=== PATIENT | female | born 1985 | race Caucasian/White ===

== ENCOUNTER 2023-02-23 13:37 | Emergency (ER) | payer MEDICAID ==
[2023-02-23 14:02] VITALS: PULSE 70; O2SAT 100
[2023-02-23] MEDS ORDERED: Sodium Chloride 0.9% 1000 ML 1,000 ML IV STA ×2 (14:05→15:26)
[2023-02-23] MEDS ORDERED: Zofran 4 MG/2 ML VIAL IV ONE (14:05)
[2023-02-23] MEDS ORDERED: Sodium Chloride 0.9% 1000 ML 1,000 ML ONE ×2 (14:06→15:28)
[2023-02-23] MEDS ORDERED: Zofran 4 MG/2 ML VIAL ONE (14:06)
--- NOTE | 2023-02-23 14:07 | ERPHSYRPT ---
- History of Present Illness Historian: patient Patient Subjective Stated Complaint: Pt began vomiting in the middle of the night and continues today, pt states that she is 5 months but has had no prenantal care and doesn't know her delivery date Triage Nursing Assessment: Pt brought to the ER by her mother, vera wnl, denies pain, vomiting, denies diarrhea, asking for a drink, pulses normal, skin pale/cool/dry, shivering, afebrile Physician History: 37 yo WF [id number] Wf who is 5 months presents w nausea/vomiting since last night. Pt has no pre-julee care and has moved recently moved here from [facility]. She denies abdominal-pelvic pain/vaginal bleeding/vaginal discharge/fever/dysuria/hematuria/diarrhea. Immediate family members w GI virus. Timing/Duration: yesterday Activities at Onset: rest Quality: other (No pain) Abdominal Pain Onset Location: other (No pain) Pain Radiation: no radiation Severity of Pain-Max: none Severity of Pain-Current: none Modifying Factors: Improves With: nothing Associated Symptoms: denies symptoms, nausea, vomiting Previous symptoms: no prior history Allergies/Adverse Reactions: No Known Drug Allergies Allergy (Verified 02/23/23 14:02) Hx Tetanus, Diphtheria Vaccination/Date Given: No Hx Influenza Vaccination/Date Given: No Hx Pneumococcal Vaccination/Date Given: No Travel Risk - International Travel Have you traveled outside of the country in past 3 weeks: No - Coronavirus Screening Are you exhibiting any of the following symptoms?: No Close contact with a COVID-19 positive Pt in past 14-21 Days: No - Vaccine Status Have you recieved a Covid-19 vaccination: No - Review of Systems Constitutional: No Symptoms Eyes: No Symptoms Ears, Nose, & Throat: No Symptoms Respiratory: No Symptoms Cardiac: No Symptoms Abdominal/Gastrointestinal: No Symptoms, Nausea, Vomiting Genitourinary Symptoms: No Symptoms Musculoskeletal: No Symptoms Skin: No Symptoms Neurological: No Symptoms Psychological: No Symptoms Endocrine: No Symptoms Hematologic/Lymphatic: No Symptoms Immunological/Allergic: No Symptoms - Past Medical History Pertinent Past Medical History: No Musculoskeletal History: Arthritis - Past Surgical History Past Surgical History: Yes Gastrointestinal: Cholecystectomy Other Surgical History: bakers cyst back of rt knee - Social History Smoking Status: Current every day smoker Exposure to second hand smoke: Yes Drug Use: marijuana Patient Lives Alone: No - Female History Hx Now: Yes Gestational Age: unknown - Nursing Vital Signs Nursing Vital Signs: Initial Vital Signs Temperature 97.4 F 02/23/23 13:44 Pulse Rate 70 02/23/23 13:44 Blood Pressure 125/69 02/23/23 13:44 O2 Sat by Pulse Oximetry 100 02/23/23 13:44 Pain Scale Pain Intensity 0 WNL - Physical Exam General Appearance: no apparent distress Eye Exam: PERRL/EOMI, eyes nml inspection Ears, Nose, Throat Exam: normal ENT inspection, TMs normal, dry mucous membranes Neck Exam: normal inspection, non-tender, supple, full range of motion, No m eningismus, No mass, No Brudzinski, No Kernig's Respiratory Exam: normal breath sounds, lungs clear, airway intact Cardiovascular Exam: regular rate/rhythm, normal heart sounds, normal peripheral pulses, capillary refill <2 sec, No murmur Gastrointestinal/Abdomen Exam: soft, normal bowel sounds, No tenderness Back Exam: normal inspection, normal range of motion, No CVA tenderness Extremity Exam: normal inspection, normal range of motion Neurologic Exam: alert, oriented x 3, cooperative, curator of collections II-XII nml as tested, normal mood/affect, nml cerebellar function, nml station & gait, sensation nml, No motor deficits, No sensory deficit Skin Exam: normal color, warm, dry Lymphatic Exam: No adenopathy SpO2 Interpretation: normal SpO2: 100 O2 Delivery: Room Air - Course Nursing assessment & vital signs reviewed: Yes - Radiology Ultrasound Exam OB Ultrasound: tele radiology report (IUP/FHR 151/Posterior placenta wo abruption or previa) Ordered Tests: Active Orders 24 hr Category Date Time Status IV Insertion STAT Care 02/23/23 14:05 Completed OB LIMITED [US] Stat Exams 02/23/23 15:27 Completed AMYLASE Stat Lab 02/23/23 14:27 Completed CBC W DIFF Stat Lab 02/23/23 14:27 Completed CMP Stat Lab 02/23/23 14:27 Completed LIPASE Stat Lab 02/23/23 14:27 Completed Medication Summary Discontinued Medications Generic Name Dose Route Start Last Admin Trade Name Freq PRN Reason Stop Dose Admin Sodium Chloride 1,000 mls @ 999 mls/hr 02/23/23 14:05 02/23/23 15:08 Sodium Chloride 0.9% 1000 Ml IV 02/23/23 15:05 Infused .Q1H1M STA Infusion Sodium Chloride Confirm 02/23/23 14:06 Sodium Chloride 0.9% 1000 Ml Administered 02/23/23 14:07 Dose 1,000 mls @ ud .ROUTE .STK-MED ONE Sodium Chloride 1,000 mls @ 999 mls/hr 02/23/23 15:26 02/23/23 16:29 Sodium Chloride 0.9% 1000 Ml IV 02/23/23 16:26 Infused .Q1H1M STA Infusion Sodium Chloride Confirm 02/23/23 15:28 Sodium Chloride 0.9% 1000 Ml Administered 02/23/23 15:29 Dose 1,000 mls @ ud .ROUTE .STK-MED ONE Ondansetron HCl 4 mg 02/23/23 14:05 02/23/23 14:07 Ondansetron Hcl 4 Mg/2 Ml Vial IV 02/23/23 14:06 4 mg STAT ONE Administration Ondansetron HCl Confirm 02/23/23 14:06 Ondansetron Hcl 4 Mg/2 Ml Vial Administered 02/23/23 14:07 Dose 4 mg .ROUTE .STK-MED ONE Lab/Rad Data: Laboratory Result Diagrams 02/23/23 14:27 02/23/23 14:27 Laboratory Results 02/23/23 02/23/23 02/23/23 Range/Units 14:27 14:27 14:27 WBC 15.8 H (4.0-10.5) x10^3/uL RBC 4.87 (4.1-5.4) x10^6/uL Hgb 15.2 (12.0-16.0) g/dL Hct 45.7 (35-47) % MCV 93.8 (78-100) fL MCH 31.2 (26-32) pg MCHC 33.3 (32-36) g/dL RDW 12.3 (11.5-14.0) % Plt Count 356 (150-450) x10^3/uL MPV 8.3 (7.5-11.0) fL Gran % 94.2 H (36.0-66.0) % Immature Gran % (Auto) 0.6 H (0.00-0.4) % Nucleat RBC Rel Count 0.0 (0.00-0.1) % Eos # (Auto) 0.04 (0-0.5) x10^3/uL Immature Gran # (Auto) 0.10 H (0.00-0.03) x10^3u/L Absolute Lymphs (auto) 0.36 L (1.0-4.6) x10^3/uL Absolute Monos (auto) 0.36 (0.0-1.3) x10^3/uL Absolute Nucleated RBC 0.00 (0.00-0.01) x10^3u/L Lymphocytes % 2.3 L (24.0-44.0) % Monocytes % 2.3 (0.0-12.0) % Eosinophils % 0.3 (0.00-5.0) % Basophils % 0.3 (0.0-0.4) % Absolute Granulocytes 14.85 H (1.4-6.9) x10^3/uL Basophils # 0.04 (0-0.4) x10^3/uL Sodium 138 (137-145) mmol/L Potassium 3.5 (3.5-5.1) mmol/L Chloride 101 (98-107) mmol/L Carbon Dioxide 26 (22-30) mmol/L Anion Gap 14.6 (5-15) MEQ/L BUN 11 (7-17) mg/dL Creatinine 0.53 (0.52-1.04) mg/dL Estimated GFR > 60.0 ML/MIN Glucose 141 H (74-106) mg/dL Calcium 8.9 (8.4-10.2) mg/dL Total Bilirubin 0.70 (0.2-1.3) mg/dL AST 24 (14-36) U/L ALT 22 (0-35) U/L Alkaline Phosphatase 80 (38-126) U/L Serum Total Protein 7.7 (6.3-8.2) g/dL Albumin 4.1 (3.5-5.0) g/dL Amylase 72 (30-110) U/L Lipase 29 (23-300) U/L Influenza Type A Ag NEGATIVE (NEGATIVE) Influenza Type B Ag NEGATIVE (NEGATIVE) RSV (PCR) NEGATIVE (NEGATIVE) SARS-CoV-2 (PCR) NEGATIVE (NEGATIVE) Slides for Path Review YES - Progress Progress Note: 02/23/23 16:46 2L NS bolus/4mg IV zofran w improvement Nursing note and vital signs reviewed No food or housing insecurities noted US result reviewed and shared w pt Pt to f/u w a local Ob 02/23/23 23:19 Counseled pt/family regarding: lab results, diagnosis, rad results - Departure Departure Disposition: Home Clinical Impression: Nausea & vomiting, Condition: Stable Critical Care Time: No Referrals: DOCTOR,NO FAMILY [Primary Care Provider] - Follow up/PCP as directed Instructions: Nausea and Vomiting, Adult (DC) Additional Instructions: Fluids Phenergan for nausea/vomiting Follow up with an Ob Return to ER as needed Prescriptions: Promethazine HCl 25 mg [Phenergan 25 mg] 25 mg PO Q4-6HPRN PRN #10 tablet PRN Reason: Nausea/Vomiting
[2023-02-23 14:41] LABS: ALBUMIN 4.1 g/dL (3.5-5.0); ALKALINE PHOSPHATASE 80 U/L (38-126); AMYLASE 72 U/L (30-110); ANION GAP 14.6 MEQ/L (5-15); BLOOD UREA NITROGEN 11 mg/dL (7-17); CHLORIDE 101 mmol/L (98-107); Calcium 8.9 mg/dL (8.4-10.2); Carbon Dioxide 26 mmol/L (22-30); Creatinine 1 0.53 mg/dL (0.52-1.04); EST GLOMERULAR FILTRATION RATE > 60.0 ML/MIN; Glucose 141 mg/dL (74-106); LIPASE 29 U/L (23-300); Potassium 3.5 mmol/L (3.5-5.1); SGOT/AST 24 U/L (14-36); SGPT/ALT 22 U/L (0-35); SODIUM 138 mmol/L (137-145); Total Protein 7.7 g/dL (6.3-8.2)
[2023-02-23 14:43] LABS: Absolute Neutrophil Ct (ANC) 14.85 x10^3/uL (1.4-6.9); BASOPHIL % 0.3 % (0.0-0.4); Basophil (Absolute #) 0.04 x10^3/uL (0-0.4); Eosinophil % 0.3 % (0.00-5.0); Eosinophil (Absolute #) 0.04 x10^3/uL (0-0.5); Hematocrit 45.7 % (35-47); Hemoglobin 15.2 g/dL (12.0-16.0); IMMATURE GRAN % 0.6 % (0.00-0.4); Lymphocyte (Absolute #) 0.36 x10^3/uL (1.0-4.6); Lymphocytes % 2.3 % (24.0-44.0); Mean Cell Volume 93.8 fL (78-100); Mean Corpuscular Hemoglobin 31.2 pg (26-32); Mean Corpuscular Hgb Concent. 33.3 g/dL (32-36); Mean Platelet Volume 8.3 fL (7.5-11.0); Monocyte (Absolute #) 0.36 x10^3/uL (0.0-1.3); Monocytes % 2.3 % (0.0-12.0); Neutrophil % 94.2 % (36.0-66.0); Platelet Count 356 x10^3/uL (150-450); Red Blood Count 4.87 x10^6/uL (4.1-5.4); Red Cell Distribution Width 12.3 % (11.5-14.0); White Blood Count 15.8 x10^3/uL (4.0-10.5)
[2023-02-23 15:04] LABS: INFLUENZA A NEGATIVE (NEGATIVE); INFLUENZA B NEGATIVE (NEGATIVE); RESPIRATORY SYNCTIAL VIRUS NEGATIVE (NEGATIVE); SARS-CoV-2 Xpert Express NEGATIVE (NEGATIVE)
[2023-02-23 15:47] LABS: Slide Review 1 YES
--- NOTE | 2023-02-23 16:34 | XRAY ---
Indication: . No care. Evaluate cervical length, placenta, and ELODIA. Comparison: None Limited OB ultrasound demonstrates single intrauterine with heart rate 151 BPM. Four-quadrant ELODIA is 12.1 cm. Posterior placenta without abruption/previa. Cervical length is 4.4 cm.
[2023-02-23 16:54] VITALS: BP 111/62
== END 2023-02-23 16:58 | disposition home or self-care (01) ==
LOC: ED 13:37
DX: O21.9 Vomiting of pregnancy, unspecified (principal); Z3A.19 19 weeks gestation of pregnancy; O09.522 Supervision of elderly multigravida, second trimester; Z28.310 Unvaccinated for COVID-19; Z72.0 Tobacco use
CPT/HCPCS: 0241U; 36415; 76815; 80053; 82150; 83690; 85025; 96360; 96374; 99284; J2405

== ENCOUNTER 2023-07-05 12:53 | Inpatient (IN) | payer OTHER ==
[2023-07-05] MEDS ORDERED: TYLENOL EXTRA STRENGTH 500 MG PO PRN (14:46)
[2023-07-05] MEDS ORDERED: Zofran 4 MG/2 ML VIAL IV PRN (14:46)
[2023-07-05] MEDS ORDERED: Lactated Ringers 1,000 ML IV ONE (14:50)
[2023-07-05] MEDS ORDERED: Ephedrine Sulfate 50 MG/ML IV PRN (14:50)
[2023-07-05] MEDS ORDERED: FENTANYL 2 MCG-BUPIV 0.125%-NS 250 ML Epidur 250 ML EPIDURAL SCH (15:00)
[2023-07-05] MEDS ORDERED: PITOCIN 30 UNITS/ LR 500 ML 30 UNITS/500 ML PLAST..BAG IV SCH ×2 (15:00)
[2023-07-05] MEDS ORDERED: Lactated Ringers 1,000 ML IV SCH (15:00)
[2023-07-05 15:15] LABS: Absolute Neutrophil Ct (ANC) 9.58 x10^3/uL (1.4-6.9); BASOPHIL % 0.4 % (0.0-0.4); Basophil (Absolute #) 0.05 x10^3/uL (0-0.4); Eosinophil % 1.1 % (0.00-5.0); Eosinophil (Absolute #) 0.14 x10^3/uL (0-0.5); Hematocrit 36.4 % (35-47); Hemoglobin 12.1 g/dL (12.0-16.0); IMMATURE GRAN # 0.06 x10^3u/L (0.00-0.03); IMMATURE GRAN % 0.5 % (0.00-0.4); Lymphocyte (Absolute #) 2.25 x10^3/uL (1.0-4.6); Lymphocytes % 17.2 % (24.0-44.0); Mean Corpuscular Hemoglobin 29.6 pg (26-32); Mean Corpuscular Hgb Concent. 33.2 g/dL (32-36); Mean Platelet Volume 8.8 fL (7.5-11.0); Monocyte (Absolute #) 1.02 x10^3/uL (0.0-1.3); Monocytes % 7.8 % (0.0-12.0); Platelet Count 325 x10^3/uL (150-450); Red Blood Count 4.09 x10^6/uL (4.1-5.4); Red Cell Distribution Width 12.8 % (11.5-14.0); White Blood Count 13.1 x10^3/uL (4.0-10.5)
[2023-07-05 16:06] LABS: ABO TYPING A; Antibody Screen NEGATIVE (NEGATIVE); RH TYPING POSITIVE
[2023-07-05 20:44] LABS: Amphetamine,Urine NEGATIVE (NEGATIVE); Barbiturate,Urine NEGATIVE (NEGATIVE); Benzodiazepine,Urine NEGATIVE (NEGATIVE); Cocaine,Urine NEGATIVE (NEGATIVE); Methadone,Urine NEGATIVE (NEGATIVE); Opiate,Urine NEGATIVE (NEGATIVE); PCP,Urine NEGATIVE (NEGATIVE); THC,Urine NEGATIVE (NEGATIVE)
[2023-07-06] MEDS ORDERED: Adacel Vial IM ONE (05:33)
[2023-07-06] MEDS: MOTRIN 400 MG PO PRN ×2 (05:39→14:32)
[2023-07-06 07:42] LABS: Absolute Neutrophil Ct (ANC) 9.51 x10^3/uL (1.4-6.9); BASOPHIL % 0.5 % (0.0-0.4); Basophil (Absolute #) 0.07 x10^3/uL (0-0.4); Eosinophil % 1.8 % (0.00-5.0); Eosinophil (Absolute #) 0.25 x10^3/uL (0-0.5); Hematocrit 34.6 % (35-47); Hemoglobin 11.2 g/dL (12.0-16.0); IMMATURE GRAN # 0.09 x10^3u/L (0.00-0.03); IMMATURE GRAN % 0.6 % (0.00-0.4); Lymphocyte (Absolute #) 3.18 x10^3/uL (1.0-4.6); Lymphocytes % 22.6 % (24.0-44.0); Mean Cell Volume 90.3 fL (78-100); Mean Corpuscular Hemoglobin 29.2 pg (26-32); Mean Corpuscular Hgb Concent. 32.4 g/dL (32-36); Mean Platelet Volume 8.6 fL (7.5-11.0); Monocyte (Absolute #) 0.99 x10^3/uL (0.0-1.3); Neutrophil % 67.5 % (36.0-66.0); Platelet Count 274 x10^3/uL (150-450); Red Blood Count 3.83 x10^6/uL (4.1-5.4); Red Cell Distribution Width 12.8 % (11.5-14.0); White Blood Count 14.1 x10^3/uL (4.0-10.5)
--- NOTE | 2023-07-06 07:54 | PCM.NOTE ---
Date and Time: 07/06/23 0753 Subjective Assessment: ppd 1 pt resting in bed and doing well able to ambulate and tolerate diet. vss afebrile abd; soft uterus; firm lochia; mild a/p sp ppd 1 dc home tomorrow should fu in office in 3 wks OBJECTIVE DATA Vital Signs: Vital Signs - 24 hr Temp Pulse Resp BP BP Pulse Ox 07/06/23 05:40 98 F 64 16 117/74 95 07/06/23 01:00 98.1 F 66 16 128/78 97 07/05/23 22:34 98.7 F 67 18 122/77 97 07/05/23 21:33 66 120/74 97 07/05/23 21:00 96.7 F 67 18 122/77 97 07/05/23 20:45 64 16 112/70 100 07/05/23 20:15 62 16 116/63 100 07/05/23 20:00 64 16 126/65 100 07/05/23 19:45 70 17 123/92 100 07/05/23 19:30 98.2 F 71 17 133/72 98 07/05/23 19:15 97.9 F 89 20 155/93 99 07/05/23 19:00 97.9 F 65 20 102/51 99 07/05/23 18:45 97.9 F 62 20 98/55 99 07/05/23 18:30 97.9 F 61 18 99/56 99/56 99 07/05/23 18:15 97.9 F 75 20 103/69 99 07/05/23 18:00 97.9 F 72 20 116/74 99 07/05/23 17:45 97.9 F 67 20 108/67 99 07/05/23 17:30 97.9 F 73 20 110/63 99 07/05/23 17:15 97.9 F 87 20 110/62 99 07/05/23 17:00 97.9 F 86 20 128/67 99 07/05/23 16:45 97.9 F 100 H 20 133/68 99 07/05/23 16:30 97.9 F 77 20 115/62 99 07/05/23 16:15 97.9 F 85 20 115/62 99 07/05/23 16:00 97.9 F 82 20 116/61 99 07/05/23 15:57 98.6 F 90 20 125/69 07/05/23 15:45 98.6 F 74 20 121/71 100 07/05/23 15:30 97.9 F 67 20 128/76 100 07/05/23 15:15 98.0 F 68 20 137/82 100 07/05/23 15:00 98.0 F 72 20 127/86 100 07/05/23 14:29 98.0 F 07/05/23 12:55 76 20 127/89 Pain Assessment - Last Documented Pain Intensity [Lower] 2 Pain Intensity 6 Pain Scale Used 0-10 Pain Scale Intake and Output: Intake & Output 07/03/23 07/04/23 07/05/23 07/06/23 11:59 11:59 11:59 11:59 Intake Total 1500 Output Total 300 Balance 1200 Weight 93.44 kg Lab Results: Lab Results-Last 24 Hours 07/05/23 07/05/23 07/05/23 Range/Units 13:06 13:06 18:00 WBC 13.1 H (4.0-10.5) x10^3/uL RBC 4.09 L (4.1-5.4) x10^6/uL Hgb 12.1 (12.0-16.0) g/dL Hct 36.4 (35-47) % MCV 89.0 (78-100) fL MCH 29.6 (26-32) pg MCHC 33.2 (32-36) g/dL RDW 12.8 (11.5-14.0) % Plt Count 325 (150-450) x10^3/uL MPV 8.8 (7.5-11.0) fL Gran % 73.0 H (36.0-66.0) % Immature Gran % (Auto) 0.5 H (0.00-0.4) % Nucleat RBC Rel Count 0.0 (0.00-0.1) % Eos # (Auto) 0.14 (0-0.5) x10^3/uL Immature Gran # (Auto) 0.06 H (0.00-0.03) x10^3u/L Absolute Lymphs (auto) 2.25 (1.0-4.6) x10^3/uL Absolute Monos (auto) 1.02 (0.0-1.3) x10^3/uL Absolute Nucleated RBC 0.00 (0.00-0.01) x10^3u/L Lymphocytes % 17.2 L (24.0-44.0) % Monocytes % 7.8 (0.0-12.0) % Eosinophils % 1.1 (0.00-5.0) % Basophils % 0.4 (0.0-0.4) % Absolute Granulocytes 9.58 H (1.4-6.9) x10^3/uL Basophils # 0.05 (0-0.4) x10^3/uL Urine Opiates Level NEGATIVE (NEGATIVE) Ur Methadone NEGATIVE (NEGATIVE) Urine Barbiturates NEGATIVE (NEGATIVE) Ur Phencyclidine (PCP) NEGATIVE (NEGATIVE) Urine Amphetamine NEGATIVE (NEGATIVE) U Benzodiazepine Level NEGATIVE (NEGATIVE) Urine Cocaine NEGATIVE (NEGATIVE) Urine Marijuana (THC) NEGATIVE (NEGATIVE) ABO Group A Rh Factor POSITIVE Antibody Screen NEGATIVE (NEGATIVE) Assessment/Plan (1) Vaginal delivery Current Visit: Yes Status: Acute Code(s): O80 - ENCOUNTER FOR FULL-TERM UNCOMPLICATED DELIVERY
--- NOTE | 2023-07-06 07:57 | PCM.DS ---
Discharge Summary Date of Admission: 07/05/23 14:29 Admitting Physician: ROBERTO CAAL DO Consults: Consults on Case 07/05/23 14:50 Notify Anesthesia Provider PRN Primary Care Provider: ROBERTO CAAL DO Allergies Allergies No Known Drug Allergies Allergy (Verified 07/05/23 13:10) Hospital Summary - Hospital Course Hospital Course: pt admitted on july 05 at 38 wks gestation was noted to being 4 cm in office and was sent to labor deliver for evaluation and was noted having cervical change within an hour to 5 cm and at this time it was decided to proceed with augmentation of labor as she was already carlos every 2-5 minutes. pt subsequently delivered live baby boy with mild shoulder dystocia where suprapubi c pressure had been given however only lasted less than a minute. during period did very well and now stable for discharge on july 07. all questions answered to her satisfaction and was advised to fu in 3 wks. - Vitals & Intake/Output Vital Signs: Vital Signs Temperature 98 F 07/06/23 05:40 Pulse Rate 64 07/06/23 05:40 Respiratory Rate 16 07/06/23 05:40 Blood Pressure 117/74 07/06/23 05:40 O2 Sat by Pulse Oximetry 95 07/06/23 05:40 Intake & Output: Intake & Output 07/03/23 07/04/23 07/05/23 07/06/23 11:59 11:59 11:59 11:59 Intake Total 1500 Output Total 300 Balance 1200 Weight 93.44 kg - Lab Result Diagrams: 07/05/23 13:06 Lab Results-Last 24 Hrs: Lab Results-Last 24 Hours 07/05/23 07/05/23 07/05/23 Range/Units 13:06 13:06 18:00 WBC 13.1 H (4.0-10.5) x10^3/uL RBC 4.09 L (4.1-5.4) x10^6/uL Hgb 12.1 (12.0-16.0) g/dL Hct 36.4 (35-47) % MCV 89.0 (78-100) fL MCH 29.6 (26-32) pg MCHC 33.2 (32-36) g/dL RDW 12.8 (11.5-14.0) % Plt Count 325 (150-450) x10^3/uL MPV 8.8 (7.5-11.0) fL Gran % 73.0 H (36.0-66.0) % Immature Gran % (Auto) 0.5 H (0.00-0.4) % Nucleat RBC Rel Count 0.0 (0.00-0.1) % Eos # (Auto) 0.14 (0-0.5) x10^3/uL Immature Gran # (Auto) 0.06 H (0.00-0.03) x10^3u/L Absolute Lymphs (auto) 2.25 (1.0-4.6) x10^3/uL Absolute Monos (auto) 1.02 (0.0-1.3) x10^3/uL Absolute Nucleated RBC 0.00 (0.00-0.01) x10^3u/L Lymphocytes % 17.2 L (24.0-44.0) % Monocytes % 7.8 (0.0-12.0) % Eosinophils % 1.1 (0.00-5.0) % Basophils % 0.4 (0.0-0.4) % Absolute Granulocytes 9.58 H (1.4-6.9) x10^3/uL Basophils # 0.05 (0-0.4) x10^3/uL Urine Opiates Level NEGATIVE (NEGATIVE) Ur Methadone NEGATIVE (NEGATIVE) Urine Barbiturates NEGATIVE (NEGATIVE) Ur Phencyclidine (PCP) NEGATIVE (NEGATIVE) Urine Amphetamine NEGATIVE (NEGATIVE) U Benzodiazepine Level NEGATIVE (NEGATIVE) Urine Cocaine NEGATIVE (NEGATIVE) Urine Marijuana (THC) NEGATIVE (NEGATIVE) ABO Group A Rh Factor POSITIVE Antibody Screen NEGATIVE (NEGATIVE) Micro Results-Entire Visit: Microbiology 07/05/23 17:15 Urine Culture - Preliminary Catherized NO GROWTH TO DATE Final Diagnosis/Problem List - Final Discharge Diagnosis/Problem (1) Vaginal delivery Current Visit: Yes Status: Acute Code(s): O80 - ENCOUNTER FOR FULL-TERM UNCOMPLICATED DELIVERY - Discharge Disposition: Home, Self-Care Condition: Stable Follow up with: ROBERTO CAAL DO [Primary Care Provider] - 3 weeks
[2023-07-06] MEDS ORDERED: Docusate Sodium 100 MG PO SCH (10:00)
[2023-07-06 18:37] VITALS: RESP 18
[2023-07-07 05:12] LABS: Absolute Neutrophil Ct (ANC) 9.08 x10^3/uL (1.4-6.9); BASOPHIL % 0.6 % (0.0-0.4); Basophil (Absolute #) 0.09 x10^3/uL (0-0.4); Eosinophil % 2.6 % (0.00-5.0); Eosinophil (Absolute #) 0.37 x10^3/uL (0-0.5); Hematocrit 35.2 % (35-47); Hemoglobin 11.5 g/dL (12.0-16.0); IMMATURE GRAN # 0.12 x10^3u/L (0.00-0.03); IMMATURE GRAN % 0.8 % (0.00-0.4); Lymphocyte (Absolute #) 3.72 x10^3/uL (1.0-4.6); Lymphocytes % 25.8 % (24.0-44.0); Mean Cell Volume 89.6 fL (78-100); Mean Corpuscular Hemoglobin 29.3 pg (26-32); Mean Corpuscular Hgb Concent. 32.7 g/dL (32-36); Mean Platelet Volume 8.8 fL (7.5-11.0); Monocyte (Absolute #) 1.03 x10^3/uL (0.0-1.3); Monocytes % 7.1 % (0.0-12.0); Neutrophil % 63.1 % (36.0-66.0); Platelet Count 316 x10^3/uL (150-450); Red Blood Count 3.93 x10^6/uL (4.1-5.4); Red Cell Distribution Width 12.7 % (11.5-14.0); White Blood Count 14.4 x10^3/uL (4.0-10.5)
[2023-07-07 14:55] VITALS: BP 127/81; PULSE 71; TEMP 98.6; O2SAT 97
== END 2023-07-07 13:00 | disposition home or self-care (01) | DRG 807 ==
LOC: OB.NST 12:53 → OB 14:29
PROVIDERS: ADMIT Obstetrics & Gynecology; ATTEND Obstetrics & Gynecology
PROC: 10E0XZZ Delivery of Products of Conception, External Approach (ICD-10-PCS; principal; 2023-07-05)
DX: O66.0 Obstructed labor due to shoulder dystocia (principal); Z37.0 Single live birth; Z3A.38 38 weeks gestation of pregnancy; Z20.828 Contact with and (suspected) exposure to other viral communicable diseases
CPT/HCPCS: 36415; 59025; 59409; 59425; 80307; 81002; 85025; 86850; 86900; 86901; 87086; 99213; J2590; A9270-GY

== ENCOUNTER 2023-08-31 06:50 | Day surgery (SDC) | payer OTHER ==
[~2023-08-31 06:50] MED LIST: Sensorcaine 0.25% 10 ML ONE
[2023-08-31] MEDS ORDERED: CEFAZOLIN 2 GM-D5W BAG** 2 GM/50 ML ML IV SCH (07:00)
[2023-08-31] MEDS ORDERED: Lactated Ringers 1,000 ML IV SCH (07:00)
[2023-08-31] MEDS ORDERED: CEFAZOLIN 2 GM-D5W BAG** 2 GM/50 ML ML IV ONE (07:19)
[2023-08-31] MEDS ORDERED: Lactated Ringers 1,000 ML IV ONE (07:19)
[2023-08-31 07:23] VITALS: RESP 16; TEMP 96.7
[2023-08-31 07:24] LABS: HCG URINE TEST NEGATIVE (NEGATIVE)
[2023-08-31] MEDS ORDERED: DIPRIVAN 200 MG/20 ML IV ONE (08:13)
[2023-08-31] MEDS ORDERED: Zemuron 100 MG/10 ML ONE (08:14)
[2023-08-31] MEDS ORDERED: Zofran 4 MG/2 ML VIAL ONE (08:14)
[2023-08-31] MEDS ORDERED: Xylocaine-Mpf 2% 5 Ml Vial ONE (08:14)
[2023-08-31] MEDS ORDERED: Decadron 4 MG INJ ONE (08:14)
[2023-08-31] MEDS ORDERED: Versed 2 MG/2 ML Injection ONE (08:59)
[2023-08-31] MEDS ORDERED: SUBLIMAZE 100 MCG/2 ML ONE ×2 (08:59→10:06)
[2023-08-31] MEDS ORDERED: TORAdol 30 mg Injection ONE (09:37)
[2023-08-31] MEDS ORDERED: BRIDION 200MG/2ML IV ONE (09:37)
[2023-08-31] MEDS ORDERED: DEMEROL 50 MG ONE (10:17)
[2023-08-31 10:29] LABS: Appearance Clear (Clear); Bacteria None Seen /HPF (None Seen); Bilirubin Negative (Negative); Blood Negative (Negative); Epithelial Cells None Seen /HPF (None Seen); Glucose, Urine Negative (Negative); Ketones Negative (Negative); Leukocyte Esterase Negative (Negative); Nitrite Negative (Negative); Ph 5.5 (4.6-8.0); Protein,Urine Dip Negative (Negative); RBC 0-2 /HPF (0-5); Specific Gravity 1.025 (1.005-1.030); Urobilinogen 0.2 mg/dL (0.2); WBC 0-2 /HPF (0-5)
[2023-08-31 11:06] VITALS: BP 120/84; PULSE 48; O2SAT 97
--- NOTE | 2023-09-01 11:42 | OP ---
SURGERY DATE/TIME: 08/31/2023 0859 PREOPERATIVE DIAGNOSIS: Multiparity desiring tubal sterilization, contraceptive care. POSTOPERATIVE DIAGNOSIS: Multiparity desiring tubal sterilization, contraceptive care. PROCEDURE: Laparoscopic tubal sterilization via Falope ring application and bipolar coagulation. SURGEON: Shaheen Cruz D.O. ENTRY LEVEL CIVIL ENGINEER: Lisa Henderson, surgical consultant. ANESTHESIA: General. ESTIMATED BLOOD LOSS: Minimal. COMPLICATIONS: None. INDICATIONS: The risks, benefits, indications and alternatives of the procedure were reviewed with the patient prior to the procedure. The patient understood the risk of infection, bleeding, bowel injury, bladder injury, pelvic infection, thromboembolic disorder as well as understands the risk of and ectopic associated with this procedure and all other forms of control had been discussed with the patient prior to the procedure. DESCRIPTION OF PROCEDURE AND FINDINGS: At this point the patient is taken to the operating room, given general sedation, placed in the dorsal lithotomy position, prepped and draped in the usual sterile fashion. A weighted speculum is then placed in the patient's vagina and the anterior lip of the cervix grasped with a single tooth tenaculum. Endocervical dilator advanced through the endocervical canal as means to dilate the cervix and uterine manipulator was inserted as a means to elevate the uterus. Attention was then turned to the patient's abdomen where a 5 mm skin incision was made in the umbilical fold where a 5 mm trocar and sleeve were advanced under direct visualization where pneumoperitoneum was obtained with 4 liters of CO2 gas. An additional incision is made approximately 2 cm above the symphysis pubis where an 8 mm incision was made and an 8 mm trocar and sleeve were advanced under direct visualization. A survey of the patient's pelvis and abdomen revealed entirely normal anatomy with no gross abnormalities that were located on the ovaries or uterus. From this point the uterus is elevated and the Falope ring applicator was then placed on the left fallopian tube where it was grasped on the isthmic region and displaced on its tube with a small knuckle of tube that was obtained. The same procedure was performed on the right tube where on the isthmic region the instrument was reloaded and the Falope ring was applied on the right tube with a good knuckle of tube that was located. From this the bipolar instrument was used to coagulate the left fallopian tube on three contiguous regions and was done so without complication and hemostasis was obtained. The same procedure was performed on the right tube where the bipolar regenerator operator was placed on three contiguous regions adjacent with Falope ring application and was clamped, coagulated with good hemostasis that was noted. From this point all instruments were removed from the patient's abdominal region. The incisions were closed with 4-0 Monocryl suture. The patient was then taken out of the dorsal lithotomy position, was then taken out of anesthesia and was then taken to the recovery room in stable condition. All instruments and laps were accounted for x2.
== END 2023-08-31 11:15 | disposition home or self-care (01) ==
LOC: SDC 06:50
PROVIDERS: ATTEND Obstetrics & Gynecology
DX: Z30.2 Encounter for sterilization (principal)
CPT/HCPCS: 81001; 81025; 87086; J0690; J1100; J1885; J2175; J2250; J2405; J2704; J3010